=== PATIENT | male | born 1975 | race Caucasian/White ===

== ENCOUNTER 2018-08-02 22:17 | Emergency (ER) | payer OTHER ==
[2018-08-02 22:17] VITALS: BMI 24.0
--- NOTE | 2018-08-02 23:06 | ED PDOC ---
HPI: Psych/Substance Abuse Time Seen by Provider: 08/02/18 22:29 Chief Complaint (Nursing): Alcohol Ingestion Chief Complaint (Provider): ETOH History Per: Patient, EMS Additional Complaint(s): 43 y/o male brought in by EMS for public intoxication. Patient admits to drinking tonight; denies acute medical or psychiatric complaints. Past Medical History Reviewed: Historical Data, Nursing Documentation, Vital Signs Vital Signs: Last Vital Signs Temp 98.4 F 08/02/18 22:28 Pulse 101 H 08/02/18 22:28 Resp 20 08/02/18 22:28 BP 140/98 H 08/02/18 22:28 Pulse Ox 99 08/02/18 22:28 - Medical History PMH: No Chronic Diseases Denies: Diabetes, Hepatitis, HIV, HTN, Seizures, Sexually Transmitted Disease - Surgical History Surgical History: No Surg Hx - Family History Family History: States: Unknown Family Hx - Living Arrangements Living Arrangements: With Family - Immunization History Hx Tetanus Toxoid Vaccination: No - Home Medications Home Medications: Ambulatory Orders Medication Instructions Recorded No Known Home Med 02/12/17 - Allergies Allergies/Adverse Reactions: Allergies Allergy/AdvReac Type Severity Reaction Status Date / Time No Known Allergies Allergy Verified 08/02/18 22:28 Review of Systems ROS Statement: Except As Marked, All Systems Reviewed And Found Negative Physical Exam - Reviewed Nursing Documentation Reviewed: Yes Vital Signs Reviewed: Yes - Physical Exam Appears: Positive for: Well, Non-toxic, No Acute Distress Head Exam: Positive for: ATRAUMATIC, NORMAL INSPECTION, NORMOCEPHALIC Skin: Positive for: Normal Color Eye Exam: Positive for: Normal appearance Cardiovascular/Chest: Positive for: Regular Rate, Rhythm Respiratory: Positive for: Normal Breath Sounds Gastrointestinal/Abdominal: Positive for: Normal Exam Back: Positive for: Normal Inspection Extremity: Positive for: Normal ROM Neurologic/Psych: Positive for: Alert, Oriented - ECG O2 Sat by Pulse Oximetry: 99 - Progress ED Course And Treament: accucheck 00:00 Patient sleeping; no distress 1:30 Patient sleeping; no distress 3:00 Patient sleeping; no distress 4:30 Patient sleeping; no distress 5:00 Patient awake, alert, oriented x3. Ambulating steady gait. Patient requires no further intervention in the ED and is stable for discharge at this time Disposition - Clinical Impression Clinical Impression: Alcohol abuse with intoxication - Patient ED Disposition Is Patient to be Admitted: No Counseled Patient/Family Regarding: Studies Performed, Diagnosis, Need For Followup - Disposition Disposition: Routine/Home Disposition Time: 05:00 Condition: IMPROVED Instructions: Alcohol Abuse and Alcoholism (DC)
[2018-08-03 05:34] VITALS: BP 119/64; PULSE 98; RESP 18; TEMP 98.1; O2SAT 98
== END 2018-08-03 05:30 | disposition home or self-care (01) ==
LOC: MERGE 22:17 → H.ER 22:17
DX: F10.129 Alcohol abuse with intoxication, unspecified (principal)

== ENCOUNTER 2018-08-03 18:02 | Emergency (ER) | payer OTHER ==
--- NOTE | 2018-08-03 21:33 | ED PDOC ---
HPI: Psych/Substance Abuse Time Seen by Provider: 08/03/18 18:12 Chief Complaint (Nursing): Alcohol Ingestion Chief Complaint (Provider): Alcohol Intoxication ED Caveat: Intoxicated History Per: EMS History/Exam Limitations: intoxication Current Symptoms Are (Timing): Still Present Additional Complaint(s): 43 year old male present to the ED via EMS after having the police called on him for being too rowdy at the long term. Patient admits to drinking alcohol and offers no other complaints, but pt is a poor historian secondary to his intoxication. PMD: none provided Past Medical History Reviewed: Vital Signs, Unable To Obtain Vital Signs: Last Vital Signs Temp 98.0 F 08/03/18 18:08 Pulse 84 08/03/18 18:08 Resp 16 08/03/18 18:08 BP 138/88 08/03/18 18:08 Pulse Ox 98 08/03/18 18:08 - Family History Family History: States: Unknown Family Hx - Immunization History Hx Tetanus Toxoid Vaccination: No Hx Influenza Vaccination: No Hx Pneumococcal Vaccination: No - Allergies Allergies/Adverse Reactions: Allergies Allergy/AdvReac Type Severity Reaction Status Date / Time No Known Allergies Allergy Verified 08/03/18 18:08 Review of Systems Review Of Systems: ROS cannot be obtained secondary to pt's inabilty to answer questions. Physical Exam - Reviewed Nursing Documentation Reviewed: Yes Vital Signs Reviewed: Yes - Physical Exam Appears: Positive for: No Acute Distress (with alcohol on breath) Head Exam: Positive for: ATRAUMATIC, NORMOCEPHALIC Eye Exam: Positive for: Normal appearance Cardiovascular/Chest: Positive for: Regular Rate, Rhythm, Chest Non Tender Respiratory: Positive for: Normal Breath Sounds. Negative for: Respiratory Distress Gastrointestinal/Abdominal: Positive for: Normal Exam, Bowel Sounds, Soft, Other (no ecchymosis). Negative for: Tenderness Back: Positive for: Normal Inspection. Negative for: L CVA Tenderness, R CVA Tenderness, Vertebral Tenderness Neurologic/Psych: Positive for: Other (slurred speech) - ECG O2 Sat by Pulse Oximetry: 98 (RA) Pulse Ox Interpretation: Normal Medical Decision Making Medical Decision Making: Time: 1839 Initial Impression: etoh intoxication Initial Plan: --Alcohol serum --Accucheck Alcohol: 442 Accucheck: 94 Scribe Attestation: Documented by Jacinta Shin, acting as a scribe for Christian Henson PA-C Provider Scribe Attestation: All medical record entries made by the Scribe were at my direction and personally dictated by me. I have reviewed the chart and agree that the record accurately reflects my personal performance of the history, physical exam, medical decision making, and the department course for this patient. I have also personally directed, reviewed, and agree with the discharge instructions and disposition. Disposition - Clinical Impression Clinical Impression: Alcohol intoxication - Patient ED Disposition Is Patient to be Admitted: Transfer of Care (Signed out to Kvng MCFARLAND pending sobriety) - Disposition Disposition Time: 23:00 Condition: FAIR Forms: [employer] (Somali)
[2018-08-03 23:10] VITALS: O2SAT 98
--- NOTE | 2018-08-04 04:03 | ED PDOC ---
- ECG O2 Sat by Pulse Oximetry: 98 (RA) - Progress ED Course And Treament: OBSERVED IN ED WITH IMPROVEMENT OF SOBRIETY Disposition - Clinical Impression Clinical Impression: Alcohol intoxication, Alcohol ingestion - POA Present On Arrival: None - Disposition Referrals: [facility] [Outside] Disposition: Routine/Home Disposition Time: 05:00 Condition: FAIR Instructions: Alcohol Abuse and Alcoholism (DC)
[2018-08-04 05:58] VITALS: BP 130/86; PULSE 89; RESP 16; TEMP 98.7
== END 2018-08-04 05:57 | disposition home or self-care (01) ==
LOC: EDBD → H.ER 18:02
DX: F10.129 Alcohol abuse with intoxication, unspecified (principal)

== ENCOUNTER 2018-08-04 19:40 | Emergency (ER) | payer OTHER ==
[2018-08-04 19:40] VITALS: BMI 24.0
--- NOTE | 2018-08-04 20:28 | ED PDOC ---
HPI: Psych/Substance Abuse Time Seen by Provider: 08/04/18 19:41 Chief Complaint (Nursing): Alcohol Ingestion Chief Complaint (Provider): alcohol intoxication History Per: Patient History/Exam Limitations: no limitations Onset/Duration Of Symptoms: Hrs (today) Current Symptoms Are (Timing): Still Present Additional Complaint(s): Jessica Cash is a 43 year old male, with no significant past medical history, who was brought to the emergency department by EMS for public intoxication. Patient admits to drinking beer and vodka today. He cannot quantify how much he drank but states his last drink was right prior to arrival. He denies any injuries, drug use or any other medical complaints at this time. PMD: None provided. Past Medical History Reviewed: Historical Data, Nursing Documentation, Vital Signs Vital Signs: Last Vital Signs Temp 97.8 F 08/04/18 19:42 Pulse 89 08/04/18 19:42 Resp 14 08/04/18 19:42 BP 147/84 08/04/18 19:42 Pulse Ox 97 08/04/18 19:42 - Medical History PMH: No Chronic Diseases Denies: Diabetes, Hepatitis, HIV, HTN, Chronic Kidney Disease, Seizures, Sexually Transmitted Disease - Surgical History Surgical History: No Surg Hx - Family History Family History: States: Unknown Family Hx - Social History Drugs: Denies - Immunization History Hx Tetanus Toxoid Vaccination: No - Home Medications Home Medications: Ambulatory Orders Medication Instructions Recorded No Known Home Med 02/12/17 - Allergies Allergies/Adverse Reactions: Allergies Allergy/AdvReac Type Severity Reaction Status Date / Time No Known Allergies Allergy Verified 08/04/18 19:42 Review of Systems ROS Statement: Except As Marked, All Systems Reviewed And Found Negative Constitutional: Positive for: Other (alcohol intoxication) Physical Exam - Reviewed Nursing Documentation Reviewed: Yes Vital Signs Reviewed: Yes - Physical Exam Appears: Positive for: No Acute Distress (intoxicated appearing) Head Exam: Positive for: ATRAUMATIC (No signs of trauma), NORMAL INSPECTION, NORMOCEPHALIC Skin: Positive for: Normal Color, Warm, Dry Eye Exam: Positive for: Normal appearance, EOMI, PERRL Neck: Positive for: Normal, Painless ROM, Supple Cardiovascular/Chest: Positive for: Regular Rate, Rhythm. Negative for: Murmur Respiratory: Positive for: Normal Breath Sounds. Negative for: Respiratory Distress Gastrointestinal/Abdominal: Positive for: Normal Exam, Soft. Negative for: T enderness, Guarding, Rebound Back: Positive for: Normal Inspection. Negative for: L CVA Tenderness, R CVA Tenderness, Vertebral Tenderness Extremity: Positive for: Normal ROM (upper and lower extremities). Negative for: Deformity, Swelling Neurologic/Psych: Positive for: Alert, Oriented (person and place only), Gait (unsteady), Other (slurred speech) - ECG O2 Sat by Pulse Oximetry: 97 (RA) Pulse Ox Interpretation: Normal Medical Decision Making Medical Decision Making: Time: 19:41 A/P: 43 y/o male presenting for alcohol intoxication. No vital sign abnormalities, no signs of trauma noted. Will observe until sobriety. Initial Plan: --Alcohol serum --Reevaluation 6AM --PAtient awake, alert, steady gait --Able to ambulate --Will discharge Scribe Attestation: Documented by Magdy Smith, acting as a scribe for Chandrakant Liriano MD. Provider Scribe Attestation: All medical record entries made by the Scribe were at my direction and personally dictated by me. I have reviewed the chart and agree that the record accurately reflects my personal performance of the history, physical exam, medic al decision making, and the department course for this patient. I have also personally directed, reviewed, and agree with the discharge instructions and disposition. Disposition - Clinical Impression Clinical Impression: Alcohol intoxication - Patient ED Disposition Is Patient to be Admitted: No - Disposition Referrals: [facility] [Outside] Disposition: Routine/Home Disposition Time: 06:08 Condition: IMPROVED Instructions: Alcohol Abuse and Alcoholism (DC) Forms: [employer] (Romansh)
[2018-08-05 06:25] VITALS: BP 139/64; PULSE 78; RESP 18; TEMP 97.7; O2SAT 99
== END 2018-08-05 06:24 | disposition home or self-care (01) ==
LOC: MERGE 19:40 → H.ER 19:40
DX: F10.129 Alcohol abuse with intoxication, unspecified (principal); Y90.8 Blood alcohol level of 240 mg/100 ml or more

== ENCOUNTER 2018-08-16 15:51 | Emergency (ER) | payer OTHER ==
[2018-08-16 15:51] VITALS: BMI 24.7
[2018-08-16] MEDS ORDERED: Sodium Chloride 0.9% 1,000 ML IV STA (16:26)
--- NOTE | 2018-08-16 16:34 | ED PDOC ---
HPI: Psych/Substance Abuse Time Seen by Provider: 08/16/18 16:19 Chief Complaint (Nursing): Alcohol Ingestion Chief Complaint (Provider): Alcohol intoxication ED Caveat: Intoxicated History Per: Patient, EMS History/Exam Limitations: no limitations Onset/Duration Of Symptoms: Mins Current Symptoms Are (Timing): Still Present Additional Complaint(s): 43 year old male, with frequent visits to this hospital for alcohol abuse, was [facility] from [facility] due to suspected intoxication. Patient localizes to pain and opens eyes to painful stimulus but is not answering questions. Patient is coughing during physical exam but otherwise not providing any information. Previous chart reviews show a history of alcohol abuse. History is limited due to intoxication. PMD: none Past Medical History Reviewed: Historical Data, Nursing Documentation, Vital Signs Vital Signs: Last Vital Signs Temp 97.0 F L 08/16/18 16:00 Pulse 105 H 08/16/18 16:00 Resp 20 08/16/18 16:00 BP 131/76 08/16/18 16:00 Pulse Ox 97 08/16/18 16:00 - Medical History PMH: No Chronic Diseases Denies: Diabetes, Hepatitis, HIV, HTN, Chronic Kidney Disease, Seizures, Sexually Transmitted Disease - Surgical History Surgical History: No Surg Hx - Family History Family History: States: Unknown Family Hx - Social History Alcohol: Other (alcohol abuse) - Immunization History Hx Tetanus Toxoid Vaccination: No Hx Influenza Vaccination: No Hx Pneumococcal Vaccination: No - Home Medications Home Medications: Ambulatory Orders Medication Instructions Recorded RX: No Known Home Med 02/16/16 RX: No Known Home Med 02/12/17 - Allergies Allergies/Adverse Reactions: Allergies Allergy/AdvReac Type Severity Reaction Status Date / Time No Known Allergies Allergy Verified 08/16/18 16:00 Review of Systems Review Of Systems: ROS cannot be obtained secondary to pt's inabilty to answer questions. (intoxication) Physical Exam - Reviewed Nursing Documentation Reviewed: Yes Vital Signs Reviewed: Yes - Physical Exam Appears: Positive for: No Acute Distress (Appears to have good hygeine; otherwise well nourished ) Head Exam: Positive for: ATRAUMATIC, NORMOCEPHALIC Skin: Positive for: Normal Color, Warm, Dry. Negative for: Rash (on exposed skin) Eye Exam: Positive for: Normal appearance, EOMI, PERRL Neck: Positive for: Normal, Painless ROM Cardiovascular/Chest: Positive for: Regular Rate, Rhythm Respiratory: Positive for: Normal Breath Sounds. Negative for: Wheezing, Respiratory Distress Gastrointestinal/Abdominal: Positive for: Normal Exam, Soft. Negative for: Tenderness Extremity: Positive for: Normal ROM Neurologic/Psych: Positive for: Alert, Other (Patient withdrawing to pain and localizes to pain). Negative for: Motor/Sensory Deficits - Laboratory Results Result Diagrams: 08/16/18 17:19 08/16/18 17:19 - ECG O2 Sat by Pulse Oximetry: 97 (RA) Pulse Ox Interpretation: Normal Medical Decision Making Medical Decision Making: Initial Impression: Altered mental status; most likely due to alcohol intoxication Initial Plan: --Alcohol serum stat --BMP --CBC --Sodium chloride 1000mL IV Will send basic labs based on cough and to determine ETOH level. IV fluids due to tachycardia. Will reevaluate patient. Scribe Attestation: Documented by Mayito Calderon acting as a scribe for Macarena Interiano MD. Provider Scribe Attestation: All medical record entries made by the Scribe were at my direction and personally dictated by me. I have reviewed the chart and agree that the record accurately reflects my personal performance of the history, physical exam, medical decision making, and the department course for this patient. I have also personally directed, reviewed, and agree with the discharge instructions and disposition. Disposition - Clinical Impression Clinical Impression: Alcohol intoxication - Disposition Referrals: [facility] [Outside] [facility] [Outside] Disposition: Transfer of Care Disposition Time: 23:00 (signed out to Dr. Boudreaux for re-eval) Condition: IMPROVED Additional Instructions: follow up with your primary doctor in 1-2 days return to the ED with any worsening or concerning symptoms Instructions: Effects of Alcohol on Your Health Forms: [employer] (Khmer)
[2018-08-16 17:32] LABS: BASO % 0.4 % (0.0-2.0); EOS % 0.3 % (0.0-4.0); HEMOGLOBIN 13.8 g/dL (12.0-18.0); LYMPH # 1.9 K/uL (1.0-4.3); MEAN CELL VOLUME 95.2 fl (80.0-94.0); MEAN CORPUSCULAR HEMOGLOBIN 31.9 pg (27.0-31.0); MEAN CORPUSCULAR HGB CONC 33.5 g/dL (33.0-37.0); MEAN PLATELET VOLUME 7.5 fl (7.2-11.7); MONO # 0.3 K/uL (0.0-0.8); MONO % 5.9 % (0.0-10.0); NEUT % 57.4 % (50.0-75.0); RBC 4.32 Mil/uL (4.40-5.90); RED CELL DISTRIBUTION WIDTH 14.2 % (11.5-14.5); WHITE BLOOD COUNT 5.2 K/uL (4.8-10.8)
[2018-08-16 17:39] LABS: BLOOD UREA NITROGEN 15 mg/dl (9-20); GFR NON-AFRICAN AMERICAN > 60
--- NOTE | 2018-08-16 23:11 | ED PDOC ---
- Laboratory Results Result Diagrams: 08/16/18 17:19 08/16/18 17:19 - ECG O2 Sat by Pulse Oximetry: 96 Medical Decision Making Medical Decision Makin Patient care endorsed from Dr. Interiano to this provider pending sobriety and reevaluation. 0000 pt resting in no distress 0443 Patient able to ambulate in ED with steady gait. vital stable. awake and alert. Stable for discharge. Scribe Attestation: Documented by Jacinta Shin acting as a scribe for Dickson Boudreaux MD. Provider Scribe Attestation: All medical record entries made by the Scribe were at my direction and personally dictated by me. I have reviewed the chart and agree that the record accurately reflects my personal performance of the history, physical exam, medical decision making, and the department course for this patient. I have also personally directed, reviewed, and agree with the discharge instructions and disposition. Disposition Counseled Patient/Family Regarding: Studies Performed, Diagnosis, Need For Followup - Clinical Impression Clinical Impression: Alcohol intoxication - POA Present On Arrival: None - Disposition Referrals: [facility] [Outside] [facility] [Outside] Disposition: Routine/Home Disposition Time: 04:42 Condition: IMPROVED Additional Instructions: follow up with your primary doctor in 1-2 days return to the ED with any worsening or concerning symptoms Instructions: Effects of Alcohol on Your Health Forms: [employer] (Uzbek)
[2018-08-17 04:53] VITALS: BP 134/73; PULSE 98; RESP 16; TEMP 98
[2018-08-18 23:26] VITALS: O2SAT 96
== END 2018-08-17 05:00 | disposition home or self-care (01) ==
LOC: H.ER 15:51
DX: F10.129 Alcohol abuse with intoxication, unspecified (principal)
CPT/HCPCS: 80048; 80320; 82948; 85025; 96360; 99283; J7030

== ENCOUNTER 2018-08-19 14:56 | Emergency (ER) | payer OTHER ==
[2018-08-19 14:58] VITALS: BMI 24.0
--- NOTE | 2018-08-19 16:32 | ED PDOC ---
HPI: Psych/Substance Abuse Time Seen by Provider: 08/19/18 15:06 Chief Complaint (Nursing): Alcohol Ingestion Chief Complaint (Provider): Alcohol Ingestion History Per: Patient History/Exam Limitations: no limitations Onset/Duration Of Symptoms: Hrs Current Symptoms Are (Timing): Still Present Suicide/Self Injury Attempted (Context): None Modifying Factor(s): Alcohol Additional Complaint(s): 43 y/o male brought in by EMS for alcohol intoxication. Patient was found sleeping on the ground today. Patient admits to drinking alcohol. At this time, patient is offering no complaints and is requesting food. PMD: none provided Past Medical History Reviewed: Historical Data, Nursing Documentation, Vital Signs Vital Signs: Last Vital Signs Temp 98.3 F 08/19/18 15:16 Pulse 78 08/19/18 15:16 Resp 20 08/19/18 15:16 BP 136/94 H 08/19/18 15:16 Pulse Ox 100 08/19/18 15:16 - Medical History PMH: No Chronic Diseases Denies: Diabetes, Hepatitis, HIV, HTN, Chronic Kidney Disease, Seizures, Sexually Transmitted Disease - Surgical History Surgical History: No Surg Hx - Family History Family History: States: Unknown Family Hx - Social History Alcohol: > 2 Drinks/Day - Immunization History Hx Tetanus Toxoid Vaccination: No Hx Influenza Vaccination: No Hx Pneumococcal Vaccination: No - Home Medications Home Medications: Ambulatory Orders Medication Instructions Recorded No Known Home Med 02/16/16 No Known Home Med 02/12/17 - Allergies Allergies/Adverse Reactions: Allergies Allergy/AdvReac Type Severity Reaction Status Date / Time No Known Allergies Allergy Verified 08/19/18 15:01 Review of Systems ROS Statement: Except As Marked, All Systems Reviewed And Found Negative Psych: Positive for: Other (EtOH intoxication) Physical Exam - Reviewed Nursing Documentation Reviewed: Yes Vital Signs Reviewed: Yes - Physical Exam Appears: Positive for: No Acute Distress Head Exam: Positive for: ATRAUMATIC, NORMOCEPHALIC Skin: Positive for: Normal Color, Warm, Dry Eye Exam: Positive for: Normal appearance, EOMI, PERRL Neck: Positive for: Normal, Painless ROM Cardiovascular/Chest: Positive for: Regular Rate, Rhythm. Negative for: Murmur Respiratory: Positive for: Normal Breath Sounds. Negative for: Respiratory Distress Gastrointestinal/Abdominal: Positive for: Normal Exam, Soft. Negative for: Tenderness Extremity: Positive for: Normal ROM. Negative for: Pedal Edema, Deformity Neurologic/Psych: Positive for: Alert, Oriented, Gait (unsteady ), Other (slurred speech and alcohol on breath. ). Negative for: Motor/Sensory Deficits - ECG O2 Sat by Pulse Oximetry: 100 (RA) Pulse Ox Interpretation: Normal - Progress ED Course And Treament: 1900 On re-evaluation, pt. sleeping. Medical Decision Making Medical Decision Making: Time: 1551 Impression: Alcohol Intoxication Plan: -- Alcohol Serum Scribe Attestation: Documented by Shyann Carbajal, acting as a scribe for Christian Henson PA-C. Provider Scribe Attestation: All medical record entries made by the Scribe were at my direction and personally dictated by me. I have reviewed the chart and agree that the record accurately reflects my personal performance of the history, physical exam, medical decision making, and the department course for this patient. I have also personally directed, reviewed, and agree with the discharge instructions and disposition. Disposition - Clinical Impression Clinical Impression: Alcohol intoxication - Patient ED Disposition Is Patient to be Admitted: Transfer of Care (Signed out to Rodger MCFARLAND pending sobriety.) - Disposition Disposition Time: 20:00 Condition: STABLE Forms: [employer] (Pashto)
[2018-08-19 18:56] VITALS: RESP 18; TEMP 98.9
[2018-08-19 20:10] VITALS: O2SAT 100
--- NOTE | 2018-08-20 05:28 | ED PDOC ---
- ECG O2 Sat by Pulse Oximetry: 100 (RA) Pulse Ox Interpretation: Normal Medical Decision Making Medical Decision Makin - Clear speech and steady gait. Disposition - Clinical Impression Clinical Impression: Alcohol intoxication - POA Present On Arrival: None - Disposition Disposition: Routine/Home Disposition Time: 05:30 Condition: STABLE Instructions: Effects of Alcohol on Your Health Forms: [employer] (Upper Sorbian)
[2018-08-20 05:47] VITALS: BP 121/65; PULSE 90
== END 2018-08-20 05:47 | disposition home or self-care (01) ==
LOC: H.ER 14:56
DX: F10.129 Alcohol abuse with intoxication, unspecified (principal); Y90.8 Blood alcohol level of 240 mg/100 ml or more

== ENCOUNTER 2018-09-09 22:25 | Emergency (ER) | payer OTHER ==
[2018-09-09 22:25] VITALS: BMI 24.0
[2018-09-09 22:29] VITALS: TEMP 97.9
--- NOTE | 2018-09-09 23:15 | ED PDOC ---
HPI: Psych/Substance Abuse Time Seen by Provider: 09/09/18 22:40 Chief Complaint (Nursing): Alcohol Ingestion Chief Complaint (Provider): Alcohol Intoxication ED Caveat: Intoxicated History Per: Patient, EMS History/Exam Limitations: intoxication Additional Complaint(s): Patient is a 43 year old male who presents to the ED via [facility] for evaluation of alcohol intoxication. Patient was found sleeping on the sidewalk. Patient admits to drinking tonight, but will not quantify the amount of beverages. Patient has no physical complaints at present and is requesting something to eat upon arrival. Patient denies any trauma. No reports of fever. Patient is well known to ED staff for frequent visits related to alcohol abuse. PMD: none Past Medical History Reviewed: Historical Data, Nursing Documentation, Vital Signs Vital Signs: Last Vital Signs Temp 97.9 F 09/09/18 22:27 Pulse 83 09/09/18 22:27 Resp 18 09/09/18 22:27 BP Pulse Ox 100 09/09/18 22:27 - Medical History PMH: No Chronic Diseases - Family History Family History: States: Unknown Family Hx - Living Arrangements Living Arrangements: Other (homeless) - Home Medications Home Medications: Ambulatory Orders Medication Instructions Recorded No Known Home Med 02/16/16 No Known Home Med 02/12/17 - Allergies Allergies/Adverse Reactions: Allergies Allergy/AdvReac Type Severity Reaction Status Date / Time No Known Allergies Allergy Verified 08/19/18 15:01 Review of Systems ROS Statement: Except As Marked, All Systems Reviewed And Found Negative Constitutional: Positive for: Other (alcohol intoxication) Physical Exam - Reviewed Nursing Documentation Reviewed: Yes Vital Signs Reviewed: Yes - Physical Exam Appears: Positive for: Non-toxic (poor hygiene, unkept appearing), No Acute Distress (Resting comfortably (+) odor of alcohol ) Head Exam: Positive for: NORMOCEPHALIC Skin: Positive for: Normal Color, Warm, Dry Eye Exam: Positive for: Conjunctival injection (bilateral) ENT: Positive for: Other (Mucus membranes moist. Airway patent, (-) stridor. ) Neck: Positive for: Painless ROM, Supple Cardiovascular/Chest: Positive for: Regular Rate, Rhythm Respiratory: Positive for: Normal Breath Sounds Gastrointestinal/Abdominal: Positive for: Soft. Negative for: Tenderness, Di stended, Guarding Extremity: Positive for: Normal ROM. Negative for: Deformity Neurologic/Psych: Positive for: Alert, Gait (unsteady), Other ((+) slurred speech). Negative for: Facial Droop - ECG O2 Sat by Pulse Oximetry: 100 (RA) Pulse Ox Interpretation: Normal Medical Decision Making Medical Decision Makin Initial Impression: alcohol intoxication Plan: Accucheck Serum alcohol Monitor for clinical sobriety Accucheck: 135 2325 Patient refusing to stay in bed. Patient making threatening statements at ED staff. Haldol 5mg IM, Ativan 2mg IM, and Benadryl 50mg IM ordered for safety of patient and staff. Patient remains unsteady on his feet. 2335 Serum alcohol: 484 0020 Patient sleeping comfortably on re-evaluation. No distress noted. 0130 Patient sleeping comfortably. 0300 Patient sleeping comfortably. 0500 Patient sleeping comfortably. 0600 On re-evaluation, patient offers no complaints. On exam, patient now AAOx3. Lungs clear to auscultation, cardiac RRR, abdomen soft, non-tender, repeat neuro exam shows no focal findings. Gait: steady. Speech: clear. Vitals stable. Lab/Diagnostic results d/w the patient in great detail. Diagnosis of alcohol abuse with intoxication d/w the patient. Based on history, exam and diagnostic results, plan will be for outpatient follow up with clinic. Patient was observed in ED for 7+ hours with no evidence of neurological/clinical deterioration. Patient instructed to follow-up with pmd / referral provided / the clinic in 1- 2 days without fail. Return to the emergency room at any time for any new or worsening symptoms. Patient states he fully agrees with and understands discharge instructions. States that he agrees with the plan and disposition. Verbalized and repeated discharge instructions and plan. I have given the patient opportunity to ask any additional questions. Disposition - Clinical Impression Clinical Impression: Alcohol abuse with intoxication - Patient ED Disposition Is Patient to be Admitted: No Counseled Patient/Family Regarding: Studies Performed, Diagnosis, Need For Followup - Disposition Referrals: [facility] [Outside] Disposition: Routine/Home Disposition Time: 06:00 Condition: STABLE Additional Instructions: The emergency medical care you received today was directed at your acute symptoms. If you were prescribed any medication, please fill it and take as directed. It may take several days for your symptoms to resolve. Return to the Emergency Department if your symptoms worsen, do not improve, or if you have any other problems. Please contact your doctor in 2 days for re-evaluation and follow up / or call one of the physicians/clinics you have been referred to that are listed on the Patient Visit Information form that is included in your discharge packet. Bring any paperwork you were given at discharge with you along with any medications you are taking to your follow up visit. Our treatment cannot replace ongoing medical care by a primary care provider (PCP) outside of the emergency department. Instructions: Alcohol Use - When Is Drinking a Problem?, Alcohol Abuse and Alcoholism (DC), Effects of Alcohol on Your Health Forms: [facility] (Persian) Print Language: IRANIAN - POA Present On Arrival: None Results - Lab Results Lab Results: 09/09/18 09/09/18 23:00 22:51 POC Glucose (mg/dL) 135 H Alcohol, Quantitative 484 H*
[2018-09-09] MEDS ORDERED: DiphenhydrAMINE 50 mg/ml Inj IM STA (23:26)
[2018-09-10 01:06] VITALS: RESP 16
[2018-09-10 07:11] VITALS: BP 106/62; PULSE 74; O2SAT 97
== END 2018-09-10 07:11 | disposition home or self-care (01) ==
LOC: H.ER 22:25
DX: F10.129 Alcohol abuse with intoxication, unspecified (principal); Y90.8 Blood alcohol level of 240 mg/100 ml or more
CPT/HCPCS: 80320; 82948; 96372; 99283; J1200; J1630; J2060

== ENCOUNTER 2018-10-10 21:00 | Emergency (ER) | payer OTHER ==
[2018-10-10 21:01] VITALS: BMI 24.0
--- NOTE | 2018-10-10 21:53 | ED PDOC ---
HPI: Psych/Substance Abuse Time Seen by Provider: 10/10/18 21:11 Chief Complaint (Nursing): Alcohol Ingestion Chief Complaint (Provider): clearance for incarceration History Per: Patient Additional Complaint(s): 43 y/o male here in police custody for clearance for incarceration. Denies acute medical or psychiatric complaints. Admits to drinking vodka today Past Medical History Reviewed: Historical Data, Nursing Documentation, Vital Signs Vital Signs: Last Vital Signs Temp 98 F 10/10/18 21:04 Pulse 111 H 10/10/18 21:04 Resp 18 10/10/18 21:04 BP 149/83 10/10/18 21:04 Pulse Ox 100 10/10/18 21:04 - Medical History PMH: No Chronic Diseases Denies: Diabetes, Hepatitis, HIV, HTN, Chronic Kidney Disease, Seizures, Sexually Transmitted Disease - Surgical History Surgical History: No Surg Hx - Family History Family History: States: No Known Family Hx - Living Arrangements Living Arrangements: Alone - Social History Current smoker - smoking cessation education provided: No Alcohol: > 2 Drinks/Day Drugs: Denies - Immunization History Hx Tetanus Toxoid Vaccination: No Hx Influenza Vaccination: No Hx Pneumococcal Vaccination: No - Home Medications Home Medications: Ambulatory Orders Medication Instructions Recorded No Known Home Med 02/16/16 No Known Home Med 02/12/17 - Allergies Allergies/Adverse Reactions: Allergies Allergy/AdvReac Type Severity Reaction Status Date / Time No Known Allergies Allergy Verified 10/10/18 21:04 Review of Systems ROS Statement: Except As Marked, All Systems Reviewed And Found Negative Physical Exam - Reviewed Nursing Documentation Reviewed: Yes Vital Signs Reviewed: Yes - Physical Exam Appears: Positive for: Well, Non-toxic, No Acute Distress Head Exam: Positive for: ATRAUMATIC, NORMAL INSPECTION, NORMOCEPHALIC Skin: Positive for: Normal Color Eye Exam: Positive for: Normal appearance ENT: Positive for: Normal ENT Inspection Cardiovascular/Chest: Positive for: Regular Rate, Rhythm Respiratory: Positive for: Normal Breath Sounds Gastrointestinal/Abdominal: Positive for: Normal Exam Back: Positive for: Normal Inspection Extremity: Positive for: Normal ROM Neurologic/Psych: Positive for: Alert, Oriented (x3) - ECG O2 Sat by Pulse Oximetry: 100 - Progress ED Course And Treament: -accucheck -alcohol level -librium PO -crisis eval 1:00 Patient sleeping; no distress 2:30 Patient awake, alert, oriented x3. Ambulating steady gait. Patient evaluated by therapeutic activities services worker and cleared for discharge as per Dr. Edison George PO given Disposition - Clinical Impression Clinical Impression: Alcohol abuse - Patient ED Disposition Is Patient to be Admitted: No Counseled Patient/Family Regarding: Studies Performed, Diagnosis, Need For Followup - Disposition Disposition: Discharged/Transfer to Law Enforcement Disposition Time: 02:46 Condition: STABLE Additional Instructions: Patient medically and psychiatrically cleared for incarceration Instructions: Alcohol Abuse and Alcoholism (DC)
[2018-10-11 00:59] VITALS: RESP 16
[2018-10-11 03:02] VITALS: BP 137/86; PULSE 90; TEMP 98.7; O2SAT 97
== END 2018-10-11 03:04 ==
LOC: H.ER 21:00
DX: F10.10 Alcohol abuse, uncomplicated (principal)

== ENCOUNTER 2018-10-15 20:00 | Emergency (ER) | payer OTHER ==
[2018-10-15 20:00] VITALS: BMI 24.0
[2018-10-15 20:02] VITALS: BP 121/72; PULSE 88; RESP 16; TEMP 98.2; O2SAT 98
--- NOTE | 2018-10-15 21:05 | ED PDOC ---
HPI: Psych/Substance Abuse Time Seen by Provider: 10/15/18 20:13 Chief Complaint (Nursing): Alcohol Ingestion Chief Complaint (Provider): alcohol intoxication History Per: Patient Additional Complaint(s): 43 y/o M with hx of alcohol abuse who was BIBA to ED for alcohol intoxication after [place]. Pt is well known to ED staff for multiple prior visits for the same. Patient admits to drinking alcohol every day. He states that he feels fine and does not know why he was brought here. He has left wrist pain but is unclear about when or what happened to wrist and states that he does not want any evaluation. Denies SI/HI, auditory or visual hallucinations. Past Medical History Reviewed: Historical Data, Nursing Documentation, Vital Signs Vital Signs: Last Vital Signs Temp 98.2 F 10/15/18 20:01 Pulse 88 10/15/18 20:01 Resp 16 10/15/18 20:01 BP 121/72 10/15/18 20:01 Pulse Ox 98 10/15/18 20:01 - Medical History PMH: Denies: Diabetes, Hepatitis, HIV, HTN, Chronic Kidney Disease, Seizures, Sexually Transmitted Disease - Family History Family History: States: Unknown Family Hx - Immunization History Hx Tetanus Toxoid Vaccination: No Hx Influenza Vaccination: No Hx Pneumococcal Vaccination: No - Home Medications Home Medications: Ambulatory Orders Medication Instructions Recorded RX: No Known Home Med 02/16/16 RX: No Known Home Med 02/12/17 - Allergies Allergies/Adverse Reactions: Allergies Allergy/AdvReac Type Severity Reaction Status Date / Time No Known Allergies Allergy Verified 10/15/18 20:01 Review of Systems Neurological: Negative for: Weakness, Altered Mental Status, Headache, Dizziness Psych: Negative for: Depression Physical Exam - Reviewed Nursing Documentation Reviewed: Yes Vital Signs Reviewed: Yes - Physical Exam Appears: Positive for: No Acute Distress Head Exam: Positive for: ATRAUMATIC Eye Exam: Positive for: Conjunctival injection (mild B/L) Pulses-Radial (L): 2+ Extremity: Positive for: Tenderness (left wrist with mild swelling, no deformity), Capillary Refill (< 2 sec). Negative for: Deformity - ECG O2 Sat by Pulse Oximetry: 98 Medical Decision Making Medical Decision Making: Patient ambulating with steady gait and answering questions coherently, A&Ox3, stable for d/c home. Disposition - Clinical Impression Clinical Impression: Alcohol abuse with alcohol-induced disorder - Disposition Referrals: [facility] [Outside] Disposition: Routine/Home Disposition Time: 21:23 Condition: STABLE Instructions: Alcohol Abuse and Alcoholism (DC) Forms: [facility] (American) Print Language: FAROESE
== END 2018-10-15 21:04 | disposition home or self-care (01) ==
LOC: H.ER 20:00
DX: F10.129 Alcohol abuse with intoxication, unspecified (principal)

== ENCOUNTER 2018-11-23 23:38 | Emergency (ER) | payer OTHER ==
[2018-11-23 23:38] VITALS: BMI 24.0
--- NOTE | 2018-11-24 00:46 | ED PDOC ---
HPI: Psych/Substance Abuse Time Seen by Provider: 11/24/18 00:00 Chief Complaint (Nursing): Alcohol Ingestion Chief Complaint (Provider): alcohol ingestion ED Caveat: Intoxicated History/Exam Limitations: no limitations Modifying Factor(s): Alcohol Additional Complaint(s): pt here because "i drank too much" denies trauma or headache no SI/HI denies other drugs states he has court apperance tomorrow am. Past Medical History Vital Signs: Last Vital Signs Temp 98.0 F 11/23/18 23:39 Pulse 89 11/23/18 23:39 Resp 16 11/23/18 23:39 BP 140/97 H 11/23/18 23:39 Pulse Ox 98 11/23/18 23:39 - Medical History PMH: No Chronic Diseases Denies: Diabetes, Hepatitis, HIV, HTN, Chronic Kidney Disease, Seizures, Sexually Transmitted Disease - Surgical History Surgical History: No Surg Hx - Family History Family History: States: Unknown Family Hx - Social History Alcohol: > 2 Drinks/Day Drugs: Denies - Immunization History Hx Tetanus Toxoid Vaccination: No Hx Influenza Vaccination: No Hx Pneumococcal Vaccination: No - Home Medications Home Medications: Ambulatory Orders Medication Instructions Recorded No Known Home Med 02/16/16 No Known Home Med 02/12/17 - Allergies Allergies/Adverse Reactions: Allergies Allergy/AdvReac Type Severity Reaction Status Date / Time No Known Allergies Allergy Verified 11/23/18 23:39 Physical Exam - Reviewed Nursing Documentation Reviewed: Yes Vital Signs Reviewed: Yes - Physical Exam Appears: Positive for: Well, Non-toxic, No Acute Distress Head Exam: Positive for: ATRAUMATIC, NORMAL INSPECTION, NORMOCEPHALIC Skin: Positive for: Normal Color, Warm, DRY Eye Exam: Positive for: EOMI, Normal appearance, PERRL Neck: Positive for: Normal, Painless ROM Cardiovascular/Chest: Positive for: Regular Rate, Rhythm Respiratory: Positive for: CNT, Normal Breath Sounds Gastrointestinal/Abdominal: Positive for: Normal Exam, Soft Back: Positive for: Normal Inspection Extremity: Positive for: Normal ROM Neurological/Psych: Positive for: Awake, Alert, Normal Tone - ECG O2 Sat by Pulse Oximetry: 98 Medical Decision Making Medical Decision Making: pt itnoxicated pt sleept throughout ER stay requested food as well 520 am pt stable for dc at this time. pt sober,. stable gait, awaker and aler in no distress. Disposition - Clinical Impression Clinical Impression: Alcohol intoxication - Patient ED Disposition Is Patient to be Admitted: No Counseled Patient/Family Regarding: Studies Performed, Diagnosis, Need For Followup - Disposition Referrals: [facility] [Outside] Disposition: Routine/Home Disposition Time: 05:25 Condition: IMPROVED Additional Instructions: follow up with your doctor in 2 days return to the ED with any worsening or concerning symptoms Instructions: Alcohol Use - When Is Drinking a Problem? Forms: [employer] (Korean)
[2018-11-24 05:07] VITALS: BP 113/63; PULSE 97; RESP 17; TEMP 98.3
[2018-11-24 06:26] VITALS: O2SAT 98
== END 2018-11-24 05:38 | disposition home or self-care (01) ==
LOC: H.ER 23:38
DX: F10.129 Alcohol abuse with intoxication, unspecified (principal); Y90.8 Blood alcohol level of 240 mg/100 ml or more